=== PATIENT | female | born 2000 | race Caucasian/White ===

== ENCOUNTER 2023-01-30 12:08 | Emergency (ER) | payer OTHER, SELFPAY ==
[2023-01-30 12:16] VITALS: BP 120/79; PULSE 86; RESP 16; TEMP 36.1; O2SAT 100; BMI 19.8
[2023-01-30 13:05] VITALS: BP 111/68; PULSE 90; RESP 16; TEMP 36.6; O2SAT 97
--- NOTE | 2023-01-30 13:30 | ED.GENADULT ---
HPI - General Adult General Chief complaint: Overdose Stated complaint: Possible OD Time Seen by Provider: 01/30/23 12:10 History of Present Illness HPI narrative: This 22-year-old female comes in stating that she took an extra Zoloft tablet this morning and is concerned that it may have been too much. She is taking 100 mg daily and for got to take her medicine yesterday. She states that she has been taking this medicine for the past 6 weeks or so and it is helping her. She takes it in the morning because it helps her depression symptoms such that she can have more energy and get on with the events of the day. She was feeling more tired this morning and thought it would be okay to take yesterday's and today's does this morning. This amounted to 200 mg which is the max dose daily according the indications but was a significant increase from her regular dosing. She states that she is feeling okay otherwise. She arrives with normal vital signs. Related Data Home Medications Medication Instructions Recorded Confirmed propranolol 60 mg capsule,24 60 mg PO DAILY 01/30/23 01/30/23 hr,extended release sertraline 100 mg tablet 100 mg PO DAILY 01/30/23 01/30/23 Allergies Allergy/AdvReac Type Severity Reaction Status Date / Time grass pollen Allergy Intermediate itching Verified 01/30/23 12:16 pollen extracts Allergy Intermediate itching Verified 01/30/23 12:16 Review of Systems Status of ROS: Reports: 10 or more systems reviewed and unremarkable except as noted in History and below Narrative: Constitutional: No fevers, no weight gain or loss. Eyes: No discharge. No vision changes. HENT: No congestion, no sore throat, no ear pain. Cardiovascular: No chest pain, no palpitations. Respiratory: No shortness of breath, no wheezes, no cough. Gastrointestinal: No abdominal pain, no vomiting, no diarrhea. Genitourinary: No dysuria, no hematuria. Musculoskeletal: Normal range of motion. Skin: No rashes, no pruritis. Neurological: No dizziness, weakness, sensory change, speech change. Endo/Heme/Allergies: No bruising or bleeding. No polydipsia. Pysch: no suicidality, no anxiety, no insomnia. All other systems reviewed and are negative. PFSH PFSH Surgical History [place] teeth extracted ?K08.409 - Partial loss of teeth, unspecified cause, unspecified class (ICD-10) Family History Grandfather Heart disease Grandmother Breast cancer High blood pressure Father High blood pressure High cholesterol Uncle Deep vein thrombosis Social History Narrative: From [place] and [place]. 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 Smoking Status: Never smoker Non-prescribed substance use: denies use service: No Exam Narrative: Exam Narrative: Constitutional: Well-developed, well-nourished, no acute distress. HEENT: Normocephalic, atraumatic. Neck: Normal range of motion. Nontender. Supple. Heart: Regular. No murmurs. Normal rate. Intact distal pulses. Lungs: Clear to auscultation. No chest discomfort. No wheezes, rhonchi, or rales. Abdomen: Normal bowel sounds. Nontender. No rebound tenderness. Genitalia: Deferred. Back: No midline tenderness. Normal range of motion. Extremities: Normal range of motion. No injury. Skin: Intact. No rash. Warm. No erythema or pallor. Neurologic: No altered sensation. No weakness. Alert and oriented. Psychiatric: No suicidality. No anxiety or depression. No insomnia. Nursing notes and vitals signs are reviewed. Const: Vital Signs, click to edit/add: Vital Signs - 24 hr 01/30/23 12:16 01/30/23 13:05 Temperature 96.9 F L 97.9 F Pulse Rate [Pulse Oximeter] 86 90 Respiratory Rate 16 16 Blood Pressure [Ri ght Upper Arm] 120/79 111/68 Pulse Oximetry 100 97 Oxygen Delivery Me thod Room Air Room Air Course Vital Signs Vital signs: Initial Vital Signs Temperature 96.9 F L 01/30/23 12:16 Temperature Source Temporal Artery Scan 01/30/23 12:16 Pulse Rate 86 01/30/23 12:16 Respiratory Rate 16 01/30/23 12:16 Blood Pressure 120/79 01/30/23 12:16 Blood Pressure Mean 92 01/30/23 12:16 Blood Pressure Position Sitting 01/30/23 12:16 Pulse Oximetry 100 01/30/23 12:16 Oxygen Delivery Method Room Air 01/30/23 12:16 Vital Signs Temperature 96.9 F L 01/30/23 12:16 Pulse Rate 86 01/30/23 12:16 Respiratory Rate 16 01/30/23 12:16 Blood Pressure 120/79 01/30/23 12:16 Pulse Oximetry 100 01/30/23 12:16 Oxygen Delivery Method Room Air 01/30/23 12:16 Temperature 97.9 F 01/30/23 13:05 Pulse Rate 90 01/30/23 13:05 Respiratory Rate 16 01/30/23 13:05 Blood Pressure 111/68 01/30/23 13:05 Pulse Oximetry 97 01/30/23 13:05 Oxygen Delivery Method Room Air 01/30/23 13:05 Medical Decision Making MDM Narrative Medical decision making narrative: This patient came in because she took an extra Zoloft tablet today because she missed her dose yesterday. The amount she took this morning was 200 mg and she is now wondering if this was an overdose. Poison Control was contacted and stated that the peak effect should occur between 4 and 8 hours. At the time of my visit it has been about 6 hours since she took this medicine. She has normal vital signs and states that she is feeling okay. She is okay to return home and encouraged to resume 100 mg daily tomorrow as prescribed. If she forgets to take her medication in the future she should resume the next day as scheduled and not double up the dosing to catch up. Discharge Plan Discharge Clinical Impression: Feared condition not demonstrated Patient Disposition: Home, Self-Care Condition: Stable Additional Instructions: Continue current plans. Follow up with MD or return if worsening. Prescriptions: No Action propranolol 60 mg capsule,extended release 24 hr 60 mg PO DAILY sertraline 100 mg tablet 100 mg PO DAILY Follow Up/Referrals: Provider,Not a Local [Primary Care Provider] - Stand Alone Forms: [employer] Info Instructions
== END 2023-01-30 13:44 | disposition home or self-care (01) ==
LOC: ED 13:41
PROVIDERS: Emergency Provider Emergency Medicine Emergency Medical Services
DX: Z79.899 Other long term (current) drug therapy (principal); Z71.1 Person with feared health complaint in whom no diagnosis is made
CPT/HCPCS: 99282; 99283; 99284

== ENCOUNTER 2023-05-16 13:05 | Outpatient (CLI) | payer OTHER, SELFPAY ==
--- NOTE | 2023-05-16 14:45 | CRLHL7_ITS ---
For Patients: As a result of the Century Cures Act, medical imaging exams and procedure reports are released immediately into your electronic medical record. You may view this report before your referring provider. If you have questions, please contact your health care provider. Indication: Possible ectopic . Technique: Multisequence multiplanar MRI of the pelvis without IV contrast. Comparison: Obstetric ultrasound earlier same day, dated 05/16/2023. Findings: Visualized bowel: Visualized bowel is not dilated. Bladder: Unremarkable for degree of distension. Reproductive organs: Interval removal of the IUD since earlier study. Intrauterine gestational sac appears to be centered within the endometrium. There is no definite separation of the gestational sac from the endometrium by the junctional zone, although it is noted that the myometrium is globally thin. There is a T2 heterogeneous structure at the anterior mid uterine body measuring approximately 2.5 x 2.1 cm (series 11, image 18). This indents the endometrial cavity. Irregular areas of intrinsic T1 hyperintensity surrounding the gestational sac, compatible with hemorrhagic products, which appears both subchorionic and within the endometrial canal. Small corpus luteum is noted within the left ovary. Pelvic lymph nodes: No lymphadenopathy. Bones: No suspicious/aggressive focal osseous lesion. Impression: 1. Intrauterine gestational sac appears to be centered within the endometrium. No definite separation of the gestational sac from the endometrium by the junctional zone to suggest presence of interstitial ectopic . However, it is noted that the myometrium itself is globally thin. Continued close clinical observation is recommended. 2. T2 heterogeneous structure at the anterior mid uterine body measuring approximately 2.5 x 2.1 cm, with indentation of the endometrial cavity. Differentials include focal adenomyomatosis versus uterine fibroid with submucosal component. 3. Subchorionic hemorrhagic products are present, as well as hemorrhagic products within the endometrial cavity itself. 4. Interval removal of the IUD since earlier study. Dictated by Dallas Whyte MD @ 05/16/2023 4:58:32 PM (Electronically Signed)
== END 2023-05-16 13:06 | disposition home or self-care (01) ==
LOC: MRI 13:05
PROVIDERS: Visit Provider Physician Assistant
DX: O26.30 Retained intrauterine contraceptive device in pregnancy, unspecified trimester (principal); O20.9 Hemorrhage in early pregnancy, unspecified
CPT/HCPCS: 72195; 76817; 93976

== ENCOUNTER 2023-05-17 08:14 | Outpatient (CLI) | payer OTHER, SELFPAY | END 2023-05-17 08:15 | disposition home or self-care (01) | LOC: NFLDREF 05-23 15:42 | PROVIDERS: Visit Provider Physician Assistant | DX: Z34.90 Encounter for supervision of normal pregnancy, unspecified, unspecified trimester (principal) | CPT/HCPCS: 84702 ==

== ENCOUNTER 2023-05-24 08:57 | Outpatient (CLI) | payer OTHER, SELFPAY | END 2023-05-24 08:58 | disposition home or self-care (01) | LOC: NFLDREF 05-27 12:46 | PROVIDERS: Visit Provider Physician Assistant | DX: Z34.01 Encounter for supervision of normal first pregnancy, first trimester (principal) | CPT/HCPCS: 84702 ==

== ENCOUNTER 2023-05-31 15:00 | Outpatient (CLI) | payer OTHER, SELFPAY | END 2023-05-31 15:01 | disposition home or self-care (01) | LOC: NFLDREF 06-05 11:26 | PROVIDERS: Visit Provider Physician Assistant | DX: O26.31 Retained intrauterine contraceptive device in pregnancy, first trimester (principal); Z3A.01 Less than 8 weeks gestation of pregnancy | CPT/HCPCS: 84702 ==

== ENCOUNTER 2023-06-07 15:00 | Outpatient (CLI) | payer OTHER, SELFPAY | END 2023-06-07 15:01 | disposition home or self-care (01) | LOC: NFLDREF 06-10 10:56 | PROVIDERS: Visit Provider Physician Assistant | DX: O26.30 Retained intrauterine contraceptive device in pregnancy, unspecified trimester (principal) | CPT/HCPCS: 84702 ==

== ENCOUNTER 2023-06-21 15:04 | Outpatient (REF) | payer OTHER, SELFPAY | END 2023-06-21 15:05 | disposition home or self-care (01) | LOC: NFLDREF 15:04 | PROVIDERS: Visit Provider Physician Assistant | DX: O26.30 Retained intrauterine contraceptive device in pregnancy, unspecified trimester (principal) | CPT/HCPCS: 84702 ==

== ENCOUNTER 2023-09-24 14:35 | Outpatient (CLI) | payer OTHER, SELFPAY ==
[2023-09-24 18:00] LABS: Chlamydia DNA Amplified* NOT DETECTED (No Detected); GC DNA Amplified* NOT DETECTED (No Detected)
== END 2023-09-24 14:36 | disposition home or self-care (01) ==
PROVIDERS: Visit Provider Physician Assistant
DX: Z11.3 Encounter for screening for infections with a predominantly sexual mode of transmission (principal); Z12.4 Encounter for screening for malignant neoplasm of cervix
CPT/HCPCS: 87491; 87591